=== PATIENT | female | born 1955 | race Caucasian/White ===

== ENCOUNTER → 2016-09-04 | Outpatient (CLI) | payer OTHER ==
[~2016-09-04] MED LIST: ALPH600C PO; ASPIRIN PO; B 12 PO; CALCIUM PO; COMBI TOP; COQ10 PO; HYDR7.5T38 PO; IBUP600T26 PO; MAGNESIUM PO; MULTLIQ7 PO; SELE50TA PO; SLO-NIACIN PO; VITAMIN C PO; VITAMIN D PO; VITAMIN E PO
--- NOTE | 2016-09-04 09:59 | REPMRS ---
Patient History The patient states she had a clinical breast exam in 05/16 Patient is postmenopausal and is nulliparous. Family history of unknown cancer in mother under age 50, unknown cancer in maternal aunt at age 50 or over, unknown cancer in paternal aunt under age 50, and unknown cancer in paternal grandmother. Benign excisional biopsy of the left breast, 1995. Taking estrogen for 9 years. Digital Woman Screen Mammo: September 04, 2016 - Exam #: [id number] Bilateral CC and MLO view(s) were taken. Technologist: Vida Mungiua, Technologist Prior study comparison: September 07, 2015, digital woman screen mammo performed at [facility] [employer] [facility]. September 04, 2014, digital woman screen mammo performed at [facility] [employer] [facility]. FINDINGS: The breast tissue is extremely dense which could obscure a lesion on mammography. There is no evidence of cancer on this mammogram. No significant changes when compared with prior studies. ASSESSMENT: BI-RADS/ACR category 2 mammogram. Benign finding(s). Recommendation Routine screening mammogram of both breasts in 1 year (for women over age 40). This mammogram was interpreted with the aid of an FDA-approved computer-aided dectection system. Electronically Signed By: Beto Muñoz MD 09/04/16 0959
== END ==
LOC: M WHC 08:47
PROVIDERS: ATTEND Obstetrics & Gynecology
DX: Z12.31 Encounter for screening mammogram for malignant neoplasm of breast (principal); Z78.0 Asymptomatic menopausal state; R92.8 Other abnormal and inconclusive findings on diagnostic imaging of breast

== ENCOUNTER → 2017-02-18 | Outpatient (CLI) | payer OTHER ==
[~2017-02-18] VITALS: Ht 167.6 cm; Wt 80.7 kg
[~2017-02-18] MED LIST changes: +ASPI81TA85 PO; +CAL-150C PO; +CO Q100C10 PO; +LEVO137T2 PO; +LOSA25TA8 PO; +MAGN30TA2 PO; +NS 1,000 ML IV ONE; +PROPOFOL 200 MG/20 ML VIAL As Ordered ONE; +SELE100T6 PO; +TURMPOW XX; +VITA400C97 PO; +VIVE0.05 TD; +[UNRECOGNIZED DRUG - CODE] PO; +[UNRECOGNIZED DRUG - OTHER] PO
--- NOTE | 2017-02-18 13:42 | ROOR ---
Patient Name: Meghann Resendiz Procedure Date: 02/18/2017 1:16 PM Date of : 1955 Age: 61 Room: [facility] Gender: Female Note Status: Finalized Procedure: Total Colonoscopy + Biopsy Polypectomy Indications: Screening for colorectal malignant neoplasm, Last colonoscopy 10 years ago Providers: Antonio Warren MD Referring MD: [facility], Admin. Requesting Provider: Medicines: Monitored Anesthesia Care Complications: No immediate complications. Procedure: Pre-Anesthesia Assessment: - The heart rate, respiratory rate, oxygen saturations, blood pressure, adequacy of pulmonary ventilation, and response to care were monitored throughout the procedure. The Colonoscope was introduced through the anus and advanced to the cecum, identified by appendiceal orifice and ileocecal valve. The colonoscopy was performed without difficulty. The patient tolerated the procedure well. The quality of the bowel preparation was excellent. Findings: The perianal and digital rectal examinations were normal. Non-bleeding internal hemorrhoids were found during retroflexion. The hemorrhoids were small and Grade I (internal hemorrhoids that do not prolapse). A small polyp was found in the rectum. The polyp was sessile. The polyp was removed with a cold biopsy forceps. Resection and retrieval were complete. The exam was otherwise without abnormality on direct and retroflexion views. Impression: - Non-bleeding internal hemorrhoids. - One small polyp in the rectum, removed with a cold biopsy forceps. Resected and retrieved. - The examination was otherwise normal on direct and retroflexion views. - The exam was otherwise normal to the cecum. Recommendation: - Patient has a contact number available for emergencies. The signs and symptoms of potential delayed complications were discussed with the patient. Return to normal activities tomorrow. Written discharge instructions were provided to the patient. - High fiber diet. - Discharge patient to home. - Continue present medications. - Await pathology results. - Telephone GI clinic for pathology results in 1 week. - Repeat colonoscopy in 10 years for surveillance based on pathology results. - Return to referring physician. - Check Portal Online for Path Results.([email or web address] - The findings and recommendations were discussed with the patient's family. Antonio Warren MD Antonio Warren MD 02/18/2017 1:41:31 PM This report has been signed electronically. Number of Addenda: 0 Note Initiated On: 02/18/2017 1:16 PM Estimated Blood Loss: Estimated blood loss: none.
[2017-02-18 14:15] VITALS: BP 147/78
== END | disposition home or self-care (01) ==
LOC: M OPP 12:19
PROVIDERS: ATTEND Internal Medicine Gastroenterology
DX: Z12.11 Encounter for screening for malignant neoplasm of colon (principal); D12.8 Benign neoplasm of rectum; K64.0 First degree hemorrhoids; I10 Essential (primary) hypertension; E03.9 Hypothyroidism, unspecified; M19.90 Unspecified osteoarthritis, unspecified site; F32.9 Major depressive disorder, single episode, unspecified; F17.210 Nicotine dependence, cigarettes, uncomplicated; Z88.8 Allergy status to other drugs, medicaments and biological substances; Z88.1 Allergy status to other antibiotic agents; Z79.899 Other long term (current) drug therapy; Z79.82 Long term (current) use of aspirin; Z80.8 Family history of malignant neoplasm of other organs or systems; Z80.1 Family history of malignant neoplasm of trachea, bronchus and lung

== ENCOUNTER → 2018-04-07 | Outpatient (CLI) | payer OTHER | LOC: M CARPUL 09:18 | DX: R93.1 Abnormal findings on diagnostic imaging of heart and coronary circulation (principal); I31.3 Pericardial effusion (noninflammatory) | CPT/HCPCS: 93306 ==

== ENCOUNTER → 2022-08-28 | Outpatient (CLI) | payer OTHER ==
[~2022-08-28] MED LIST changes: -ASPI81TA85 PO; +ASPI81TA86 PO; +ISOVUE-370 76% 100ML VIAL As Ordered ONE; +LOSA25TA13 PO; -LOSA25TA8 PO; -NS 1,000 ML IV ONE; -PROPOFOL 200 MG/20 ML VIAL As Ordered ONE; +[UNRECOGNIZED DRUG - CODE] PO; -[UNRECOGNIZED DRUG - CODE] PO
== END ==
LOC: M RAD 15:45
PROVIDERS: ATTEND Nurse Practitioner Family
DX: C64.2 Malignant neoplasm of left kidney, except renal pelvis (principal); E27.9 Disorder of adrenal gland, unspecified
CPT/HCPCS: 74178; Q9967

== ENCOUNTER → 2022-10-23 | Outpatient (CLI) | payer MEDICARE, OTHER ==
[~2022-10-23] MED LIST changes: -ISOVUE-370 76% 100ML VIAL As Ordered ONE
== END ==
LOC: M WHC 14:29
DX: Z12.31 Encounter for screening mammogram for malignant neoplasm of breast (principal)

== ENCOUNTER → 2023-10-30 | Outpatient (CLI) | payer OTHER, MEDICARE | LOC: M WHC 12:22 | PROVIDERS: ATTEND Nurse Practitioner Family | DX: Z12.31 Encounter for screening mammogram for malignant neoplasm of breast (principal) ==

== ENCOUNTER 2024-04-27 06:50 | Day surgery (SDC) | payer MEDICARE, OTHER ==
[~2024-04-27] VITALS: Ht 167.6 cm; Wt 83.6 kg
[~2024-04-27 06:50] MED LIST changes: +AMLO1TAB24 PO; +ARMO1TAB PO; +ASPI81TA26 PO; +B-COCAP8 PO; +BRIL90TA PO; +CALC500T52 PO; +COQ150CH PO; +JARD1TAB PO; +LOSA100T46 PO; +RA T500C2 PO; +ROSU5TAB40 PO; +SELE100T PO; +SIMETHICONE 40MG/0.6ML DROPS 30ML As Ordered ONE; +THERTAB52 PO; +THYR60TA PO; +VITA100093 PO; +VIVE0.03 TD
[2024-04-27] MEDS: NS 1,000 ML IV ONE (08:01)
[2024-04-27] MEDS ORDERED: propofoL 200 MG/20 ML VIAL As Ordered ONE (10:23)
[2024-04-27 10:55] VITALS: TEMP 97
[2024-04-27 11:11] VITALS: BP 131/61; O2SAT 93
== END 2024-04-27 11:18 | disposition home or self-care (01) ==
LOC: M OPP 06:50
PROVIDERS: ATTEND Surgery
DX: K57.30 Diverticulosis of large intestine without perforation or abscess without bleeding (principal); K92.1 Melena; Z87.891 Personal history of nicotine dependence; Z95.5 Presence of coronary angioplasty implant and graft; I25.119 Atherosclerotic heart disease of native coronary artery with unspecified angina pectoris; G47.33 Obstructive sleep apnea (adult) (pediatric); Z99.89 Dependence on other enabling machines and devices; I10 Essential (primary) hypertension; E03.9 Hypothyroidism, unspecified; Z79.02 Long term (current) use of antithrombotics/antiplatelets; Z79.82 Long term (current) use of aspirin; Z79.890 Hormone replacement therapy; Z88.1 Allergy status to other antibiotic agents; Z88.8 Allergy status to other drugs, medicaments and biological substances

== ENCOUNTER → 2024-10-31 | Outpatient (CLI) | payer MEDICARE, OTHER ==
[~2024-10-31] MED LIST changes: -B-COCAP8 PO; -ROSU5TAB40 PO; +ROSU5TAB49 PO; -SIMETHICONE 40MG/0.6ML DROPS 30ML As Ordered ONE; +VITA1CAP55 PO
== END ==
LOC: M WHC 13:14
PROVIDERS: ATTEND Nurse Practitioner Family
DX: Z12.31 Encounter for screening mammogram for malignant neoplasm of breast (principal)